=== PATIENT | female | born 1990 | race Caucasian/White ===

== ENCOUNTER → 2016-05-18 | Outpatient (CLI) | payer MEDICARE ==
[~2016-05-18] MED LIST: ALBUTEROL17 GM INH; IBUPROFEN800 MG PO; PREDNISONE PO; ZITHROMAX PO
--- NOTE | ~2016-05-18 | HM ---
Unit #: [id number] #: [id number] Patient: DOLORES SORENSON [id number] [address] [place], [place] [address] [id number] MR#: [id number] NAME: DOLORES SORENSON. : 1990 SEX: F STUDY DATE/TIME: UNIT: [facility] [place] ROOM: STUDY DESCRIPTION: Holter Monitor Attending Physician: Dee Serraon A.P.R.N. Referring Physician: Dee Serrano A.P.R.N. Primary Care Physician: Dee Serrano A.P.R.N. CARDIOLOGY REPORT EXAM Holter Monitor DATE APPLIED 05/18/2016 DATE SCANNED 05/21/2016 ORDERED BY Dee Serrano A.P.R.N. READ BY Denzel Dominguez M.D. INDICATION Palpitations. SUMMARY The patient was monitored for 24 hours. A total of 108,540 QRS complexes were analyzed. The average heart rate was 75 beats/minute. The minimum heart rate of 41 beats/minute occurred at 5:29 a.m., maximum heart rate 144 beats/minute occurred at approximately 9:40 p.m. There were no pauses. Activity during the maximum heart rate is unknown. A review of the heart rate histogram suggests this may have been during a period of exercise. Supraventricular Ectopy: 5 isolated beats. No SVT. Ventricular Ectopy: 8 isolated beats, with one couplet, and no runs. Symptoms: None reported. Patient Activated Events: None. IMPRESSION Normal Holter. Asymptomatic and very rare supraventricular and ventricular ectopy. Dictated by... Unit #: [id number] #: [id number] Patient: DOLORES SORENSON Marlys Rabago/verito TD: 05/22/2016 12:59 JOB #: [id number] CARDIOLOGY REPORT Page 1 of 1 X Denzel Dominguez MD HOLTER MONITOR REPORT
== END | disposition home or self-care (01) ==
LOC: CEKG 15:12
DX: R00.2 Palpitations (principal)
CPT/HCPCS: 93225; 93226